=== PATIENT | male | born 1955 | race Caucasian/White ===

== ENCOUNTER 2023-04-07 16:21 | Emergency (ER) | payer MEDICARE, BC ==
[~2023-04-07] VITALS: Ht 175.3 cm; Wt 70.0 kg
[2023-04-07 16:36] VITALS: BP 128/92
== END 2023-04-07 21:39 | disposition home or self-care (01) ==
LOC: ER 16:22
DX: S30.21XA Contusion of penis, initial encounter (principal); N48.89 Other specified disorders of penis; X58.XXXA Exposure to other specified factors, initial encounter; Y93.89 Activity, other specified; Y92.89 Other specified places as the place of occurrence of the external cause; Y99.8 Other external cause status
CPT/HCPCS: 99284